=== PATIENT | female | born 1990 | race African-American/Black ===

== ENCOUNTER 2021-09-20 06:21 | Emergency (ER) | payer SELFPAY ==
--- NOTE | 2021-09-20 07:00 | EDM.PDOC ---
ED HPI GENERAL MEDICAL PROBLEM - General Chief Complaint: ENT Problem Stated Complaint: EYE IRRITATION Time Seen by Provider: 09/20/21 06:59 Source of Information: Reports: Patient History Limitations: Reports: No Limitations - History of Present Illness INITIAL COMMENTS - FREE TEXT/NARRATIVE: 31-year-old female presents to the ED complaining of severe left eye pain which started yesterday. She does not wear contact lenses or eyeglasses. She is severely photophobic and cannot open the left eye at all. Is been excessively tearful. Of note the patient has very long fingernails. No known injury to the cornea. Pain kept her up a good portion of the night. Onset: Sudden Onset Date: 09/19/21 Onset Time: 16:00 Duration: Hour(s):, Getting Worse Location: Reports: Face Quality: Reports: Ache, Burning Severity: Moderate Improves with: Reports: None Worsens with: Reports: Other Context: Reports: Other (Developed left eye pain left eye yesterday afternoon with no known injury.). 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 Denies: Fever, Chills, Malaise, Weakness HEENT: Reports: Eye Pain (From not sleeping most of the night. Left eye pain and redness. Severe photophobia) Respiratory: Reports: No Symptoms Cardiovascular: Reports: No Symptoms Endocrine: Reports: No Symptoms GI/Abdominal: Reports: No Symptoms : Reports: No Symptoms Musculoskeletal: Reports: No Symptoms Skin: Reports: No Symptoms Neurological: Reports: No Symptoms Psychiatric: Reports: No Symptoms Hematologic/Lymphatic: Reports: No Symptoms Immunologic: Reports: No Symptoms ED EXAM GENERAL W FULL EYE - Physical Exam Exam: See Below Exam Limited By: No Limitations General Appearance: Alert, WD/WN, Moderate Distress, Other Eye Exam: Left Eye: Corneal Abrasion (Vertically over the mid cornea approximately 4 mm in length.), Bilateral Eye: PERRL Eyelids: Left: Normal Appearance, Lid Everted for Exam Conjunctiva & Sclera: Left: Injected (Mildly.) Cornea Exam: Left: Corneal Abrasion (Near the centerOf the cornea approximately 4 m in length. It is vertical) Extraocular Movements: Bilateral: Intact Pupils: Normal Accommodation Pupillary Size: Bilateral: 5 mm Pupillary Reaction: Bilateral: Brisk Anterior Chamber: Left: Normal Appearance Course - Vital Signs Last Recorded V/S: Last Vital Signs Temp 35.7 C L 09/20/21 06:32 Pulse 86 09/20/21 06:32 Resp 15 09/20/21 06:32 BP 156/77 H 09/20/21 06:32 Pulse Ox 100 09/20/21 06:32 - Orders/Labs/Meds Meds: Medications Discontinued Medications Generic Name Dose Route Start Last Admin Trade Name Freq PRN Reason Stop Dose Admin Hydrocodone Bitart/Acetaminophen 1 tab 09/20/21 07:14 Acetaminophen/Hydrocodone 325-5 Mg Tab PO Q6H PRN Lt eye pain Ciprofloxacin 2.5 ml 09/20/21 07:15 09/20/21 07:24 Ciprofloxacin 0.3% Ophth Soln 5 Ml Bottle EYELF 09/20/21 07:16 1 drop ONETIME ONE Administration Ketorolac Tromethamine 2.5 ml 09/20/21 07:12 09/20/21 07:18 Ketorolac 0.5% Ophth Soln 5 Ml Bottle EYELF 09/20/21 07:13 1 drop ONETIME ONE Administration Oxycodone/Acetaminophen Confirm 09/20/21 07:23 09/20/21 07:25 Acetaminophen/Oxycodone 325-5 Mg Tab Administered 09/20/21 07:24 1 tab Dose Administration 1 tab .ROUTE .STK-MED ONE - Radiology Interpretation Free Text/Narrative:: 31-year-old female presents to the ED with acute onset of left eye pain yesterda y afternoon. Pain is progressed overnight with redness of the eye appreciated this morning. It is extremely photophobic. She has no history of eye disease. She does not wear contact lenses or glasses. Examination under proparacaine anesthesia reveals a central corneal abrasion measuring about 4 mm and a lightening bolt fashion vertically. Appears that she is scratch the cornea of her eye with her long fingernails. No signs of infection identified. Treated with ketorolac drops 2 drops every 6 hours for the next 24 hours. Antibiotic is to be ciprofloxacin 2 drops to left eye ever 6 hours for the next 3 days to prevent secondary infection. Also provided hydrocodone 5/325 mg tabs 1 tablet every 6 hours with Motrin 600 mg every 6 hours for pain relief today. Clinically no evidence of glaucoma. Follow-up in 36 hours time if not completely back to normal. Departure - Departure Time of Disposition: 07:38 Disposition: Home, Self-Care 01 Condition: Fair Clinical Impression: Left cornea abrasion Qualifiers: Encounter type: initial encounter Qualified Code(s): S05.02XA - Injury of conjunctiva and corneal abrasion without foreign body, left eye, initial encounter - Discharge Information *PRESCRIPTION DRUG MONITORING PROGRAM REVIEWED*: Not Applicable *COPY OF PRESCRIPTION DRUG MONITORING REPORT IN PATIENT CELSO: Not Applicable Prescriptions: Acetaminophen/HYDROcodone [HYDROcodone-Acetaminophen 5-325 MG *] 1 tab PO Q6H PRN #10 each PRN Reason: Lt corneal abrasion Referrals: PCP,Not In Area [Primary Care Provider] - Forms: ED Department Discharge, ED Return to Work/School Form Additional Instructions: Evaluation in the emergency room today in regards to left eye pain and redness with severe photophobia and sensitivity to light. Examination reveals a central corneal abrasion which is slightly irregular like a lightening bolt. This is essentially a scratch on the cornea. Treatment is to place ketorolac drops 2 drops every 6 hours into the left eye to relieve pain and inflammation and antibiotic Cipro Floxin eyedrops 2 drops to the left eye every 6 hours for the next 3 days to prevent any infection. Suggest double eye patch to the left eye for the first 24 hours. You should be markedly improved over the next 36 hours if not you should be seen again for follow-up with sound technician in clinic. Sepsis Event Note (ED) - Evaluation Sepsis Screening Result: No Definite Risk - Focused Exam Vital Signs: Vital Signs Temp Pulse Resp BP Pulse Ox 09/20/21 06:32 35.7 C L 86 15 156/77 H 100
[2021-09-20] MEDS ORDERED: Ketorolac 0.5% Ophth Soln 5 ML Bottle EYELF ONE (07:12)
[2021-09-20] MEDS ORDERED: Acetaminophen/HYDROcodone 325-5 MG Tab PO PRN (07:14)
[2021-09-20] MEDS ORDERED: Ciprofloxacin 0.3% Ophth Soln 5 ML Bottle EYELF ONE (07:15)
[2021-09-20] MEDS ORDERED: Acetaminophen/oxyCODONE 325-5 MG Tab ONE (07:23)
== END 2021-09-20 07:50 | disposition home or self-care (01) ==
LOC: JD.ED 06:21
DX: S05.02XA Injury of conjunctiva and corneal abrasion without foreign body, left eye, initial encounter (principal); X58.XXXA Exposure to other specified factors, initial encounter
CPT/HCPCS: 99283; A9270